=== PATIENT | female | born 2000 | race Two or more races ===

== ENCOUNTER 2023-02-10 21:02 | Emergency (ER) | payer OTHER ==
[~2023-02-10] VITALS: Ht 144.8 cm; Wt 51.7 kg
[2023-02-10 21:22] VITALS: BP 106/66; PULSE 97; RESP 20; TEMP 98; O2SAT 98
[2023-02-10] MEDS ORDERED: ACETAMINOPHEN EXTRA STRENGTH 500 MG TAB PO ONE (23:35)
[2023-02-11] MEDS ORDERED: BACI-418 TP (00:02)
[2023-02-11] MEDS ORDERED: IBUP-2213 PO (00:02)
[2023-02-11 00:44] VITALS: BP 112/60; PULSE 97; RESP 20; TEMP 98; O2SAT 99
== END 2023-02-11 00:44 | disposition home or self-care (01) ==
LOC: MED 21:02
DX: S61.411A Laceration without foreign body of right hand, initial encounter (principal); W25.XXXA Contact with sharp glass, initial encounter; Y93.89 Activity, other specified; Y92.89 Other specified places as the place of occurrence of the external cause; Y99.8 Other external cause status
CPT/HCPCS: 12001; 73130; 90471; 90715; 99283